=== PATIENT | male | born 1995 | race Caucasian/White ===

== ENCOUNTER 2022-09-14 21:17 | Emergency (ER) | payer SELFPAY ==
--- OUTSIDE RECORDS SUMMARY | 2022-09-14 21:21 | XMS REPORT | Continuity of Care Document ---
:1995 Author Organization [facility] t Address [address] [facility] [address] [place] [id number] Care Team Providers Name Role Phone Asked, No Pcp Primary Care Physician Unavailable Iris Schmitt Attending Clinician Denilson GUIDE DOG MOBILITY INSTRUCTOR, Bernice Cook Attending Clinician Payers Payer Name Policy Type Policy Number Effective Date Expiration Date S ource Problems Condition Condition Condition Status Onset Resolution Last Treating Co mments Source Name Details Category Date Date Treatment Clinician Date Patient Patient Problem Active 2022-02-19 Me moria encounter encounter 21:22:02 l status status [place] (finding) (finding) Active Problem 02/19/2022 [facility] Simple Simple Problem Active 2020-10-30 John laney obesity obesity 02:00:46 l (disorder) (disorder) Luis Miguel rmann Active Problem 10/30/2020 [facility] Bleeding Bleeding Problem Active 2022-02-19 Memoria from nose from nose 21:22:02 l (finding) (finding) Herm bre Active Problem 02/19/2022 [facility] Body mass Body Problem Active 2022-02-19 Me moria index 30+ mass index 21:22:02 l - obesity 30+ - [place] (finding) obesity (finding) Active Problem 02/19/2022 [facility] Group Krystina Krystina Problem Active 2022-02-19 Me moria intertrigo intertrigo 21:22:02 l (disorder) (disorder) Luis Miguel rmann Active Problem 02/19/2022 [facility] Obesity Obesity Problem Active 2022-02-19 Me moria (disorder) (disorder) 21:22:02 l Active [place] Problem 02/19/2022 [facility] History of Past Illness Condition Condition Condition Status Onset Resolution Last Treating Co mments Source Name Details Category Date Date Treatment Clinician Date Candidiasi Candidias Problem 2021-052022-02-14 2022-02-14 Memoria s of skin is of skin 0-07 03:26:57 03:26:57 l and nail and nail 16:22: Jh bolden 02/11/2022 00 02/14/2022 [facility] Epistaxis Problem 2021-052022-02-14 2022-02-14 Memoria Epistaxis 0-07 03:26:57 03:26:57 l 02/11/2022 16:21: Jh bolden 02/14/2022 00 [facility] Group Encounter Encounter Problem 2021-052022-02-14 2022-02-14 Memoria for for 0-07 03:26:57 03:26:57 l immunizati immunizati 16:09: Luis Miguel hatfield on on 02/11/2022 02/14/2022 [facility] Obesity, Obesity, Problem 2021-052022-02-14 2022-02-14 Memoria unspecifie unspecifie 0-07 03:26:57 03:26:57 l d d 16:06: [place] 02/11/2022 00 02/14/2022 [facility] Body mass Body mass Problem 2021-052022-02-14 2022-02-14 Memoria index index 0-07 03:26:57 03:26:57 l (BMI) (BMI) 16:06: [place] 34.0-34.9, 34.0-34.9, 00 adult adult 02/11/2022 02/14/2022 [facility] Encounter Problem 2021-052022-02-14 2022-02-14 Memoria for Encounter 0-07 03:26:57 03:26:57 l screening for 16:06: [place] for lipoid screening 00 disorders for lipoid disorders 02/11/2022 02/14/2022 [facility] Encounter Encounter Problem 2021-052022-02-14 2022-02-14 Memoria for for 0-07 03:26:57 03:26:57 l general general 16:06: [place] adult adult 00 medical medical examinatio examinatio n without n without abnormal abnormal findings findings 02/11/2022 02/14/2022 [facility] Encounter Encounter Problem 2021-052022-02-14 2022-02-14 Memoria for for 0-07 03:26:57 03:26:57 l screening screening 16:06: Herm bre for for 00 diabetes diabetes mellitus mellitus 02/11/2022 02/14/2022 [facility] Allergies, Adverse Reactions, Alerts Allergy Allergy Status Severity Reaction(s) Onset Inactive Treating Comm ents Source Name Type Date Date Clinician No Known No Known Active Memori a Medicati Medicati l on on [place] Allergie Allergie s s Social History Social Habit Start Date Stop Date Quantity Comments Source Gender identity [facility] Sexual orientation Method [facility] Sex Assigned At [address] [facility] 00:00:00 00:00:00 Smoking Status Start Date Stop Date Source Tobacco smoking consumption unknown [facility] Tobacco smoking status [facility] Medications Ordered Filled Start Stop Current Ordering Indication Dosage Frequency Signature Comments Components Source Medication Medication Date Date Medication? Clinician (SIG) Name Name nystatin-tr 2021-05 Yes 1 appl, Mem oria iamcinolone 0-07 TOP, BID, l topical 16:26: X 14 day, Cynthia nn cream 00 # 30 gm, 0 Refill(s), Pharmacy: [facility] [place], 172.72, cm, 02/11/22 10:31:00 CDT, Height, 102.528, kg, 02/11/22 10:31:00 CDT, Weight No known No No known Metho di medications 1-[address] 09:29: [facility] l Immunizations Ordered Immunization Filled Immunization Date Status Commen ts Source Name Name influenza virus 2022-02-11 Completed [facility], 19:15:00 [place] inactivated<sup>1</s up> influenza virus 2021-04-09 Completed [facility] vaccine, inactivated 00:00:00 Kamala díaz [id number] 2021-03-31 Completed John rial NA-[id number] 00:00:00 [place] diphtheria/pertussis 2020-10-27 Completed John rial , acel/tetanus 20:39:00 [place] adult<sup>1</sup> diphtheria/pertussis 2020-10-27 Completed John rial , acel/tetanus 20:39:00 [place] adult<sup>4</sup> [id number]-[id number] 2020-09-07 Completed John rial NA-[id number]<nichole 00:00:00 Herm bre p>2</sup> MRTT-JyQ-[id number]-19mR 2020-08-10 Completed John rial NA-1273vaxMODERNA<nichole 00:00:00 Herm bre p>3</sup> Vital Signs Vital Name Observation Time Observation Value Comments Source Temperature Oral (F) 2022-02-11 15:31:00 97.8 F [facility] [place] Heart Rate 2022-02-11 15:31:00 [facility] [place] Respitory Rate 2022-02-11 15:31:00 Mem[facility] al [place] Systolic (mm Hg) 2022-02-11 15:31:00 John rial [place] Diastolic (mm Hg) 2022-02-11 15:31:00 Mem orial [place] Height 2022-02-11 15:31:00 172.72 cm [facility] [place] Weight 2022-02-11 15:31:00 [facility] [place] BMI Calculated 2022-02-11 15:31:00 Memori al [place] BMI 2021-05-13 15:28:00 29.27 kg/m2 [facility] Body height 2021-05-13 15:28:00 177.8 cm [facility] Body weight 2021-05-13 15:28:00 92.534 kg [facility] Systolic (mm Hg) 2020-10-27 19:31:00 John rial [place] Diastolic (mm Hg) 2020-10-27 19:31:00 Mem orial [place] Heart Rate 2020-10-27 19:31:00 [facility] [place] Height 2020-10-27 19:31:00 172.72 [facility] 2020-10-27 19:31:00 [facility] BMI Calculated 2020-10-27 19:31:00 [facility] al [place] Procedures Procedure Date / Time Performed Performing Clinician Ernesto e Eye 2018-05-08 06:00:00 [facility] padilla examination<sup>1</sup> Plan of Care Planned Activity Planned Date Details Comments Source Future Scheduled 2022-08-09 COVID-19 VACCINE Methodi [facility] Test 02:47:54 (#1) [code = COVID-19 VACCINE (#1)] Future Scheduled 2022-08-09 INFLUENZA VACCINE Method [facility] Test 02:47:54 [code = INFLUENZA VACCINE] Future Scheduled 2021-05-30 COVID-19 VACCINE Methodi [facility] Test 21:11:42 (1) [code = COVID-19 VACCINE (1)] Future Scheduled 2021-05-30 [facility] 21:11:42 screening (procedure) [code = 286352569] Future Scheduled 2021-05-30 INFLUENZA VACCINE Method [facility] Test 21:11:42 [code = INFLUENZA VACCINE] Encounters Start End Encounter Admission Attending Care Care Encounter Source Date/Time Date/Time Type Type Clinicians Facility Department ID 2022-02-16 2022-02-17 Between nullFlavo MG [id number] Memoria 11:25:37 11:25:37 Visit r Primary 00 [facility] 2022-02-16 2022-02-[address] [id number] 06:25:37 06:25:37 00 2022-02-11 2022-02-12 Outpatient nullFlavo [facility] [id number] Memoria 15:40:00 04:59:59 r Primary 01 [facility] 2022-02-11 2022-02-11 Outpatient Schmitt [facility] [id number] 10:40:00 23:59:59 Iris Aliyah Les 2022-02-11 2022-02-11 Outpatient AMA LUIS [id number] Memoria 10:40:00 10:40:00 01 [facility] 2021-11-30 2021-11-30 Outpatient [facility] [id number] [place] 00:00:00 00:00:[address] 2021-05-13 2021-05-13 Ara [place] [id number] Methodi 08:47:52 09:43:28 Urgent Bernice Cook [id number] [facility] [id number] Hospit a .[id number] l .8 2020-10-27 2020-10-28 Outpatient nullFlavo [facility] [id number] Memoria 19:40:00 04:59:59 r Primary 00 l Zack Snider [facility] 2020-10-27 2020-10-27 Outpatient Oskar [facility] [id number] 14:40:00 23:59:59 Iris 00 Les 2020-10-27 2020-10-27 Outpatient [facility] [id number] Memoria 14:40:00 14:40:00 00 l [place] Results Test Description Test Time Test Comments Results Result Comments Source CHEM PANEL 2022-02-11 16:44:00 Test Item Value Reference Range Interpretation Comme nts Glucose Lvl (test code = Glucose Lvl) 82 65-99 [facility]2022-10-07 16:44:00 Test Item Value Reference Range Interpretation Comments BUN (test code = BUN) 14 7-25 [id number] 16:44:00 Test Item Value Reference Range Interpretation Comments Creatinine Lvl (test code = Creatinine 0.90 0.60-1.24 Lvl) [facility] [id number] 16:44:00 Test Item Value Reference Range Interpretation Comments eGFR (test code = eGFR) 122 [facility] [id number] 16:44:00 Test Item Value Reference Range Interpretation Comments B/C Ratio (test code = B/C NOT APPLICABLE 622 Ratio) [facility]putAT[id number] 16:44:00 Test Item Value Reference Range Interpretation Comments Sodium Lvl (test code = Sodium Lvl) 143 135-146 [facility]put[facility] [id number] 16:44:00 Test Item Value Reference Range Interpretation Comments Potassium Lvl (test code = Potassium 4.9 3.5-5.3 Lvl) [facility] [id number] 16:44:00 Test Item Value Reference Range Interpretation Comments Chloride Lvl (test code = Chloride Lvl) 106 98-110 [facility]2022-10-07 16:44:00 Test Item Value Reference Range Interpretation Comments CO2 (test code = CO2) 29 20-32 [facility] [id number] 16:44:00 Test Item Value Reference Range Interpretation Comments Calcium Lvl (test code = Calcium Lvl) 9.6 8.6-10.3 [place] [id number] 16:44:00 Test Item Value Reference Range Interpretation Comments Total Protein (test code = Total 6.6 6.1-8.1 Protein) [place] [id number] 16:44:00 Test Item Value Reference Range Interpretation Comments Albumin Lvl (test code = Albumin Lvl) 4.5 3.6-5.1 [place] [id number] 16:44:00 Test Item Value Reference Range Interpretation Comments Globulin (test code = Globulin) 2.1 1.9-3.7 [place] [id number] 16:44:00 Test Item Value Reference Range Interpretation Comments A/G Ratio (test code = A/G Ratio) 2.1 1.0-2.5 [place] [id number] 16:44:00 Test Item Value Reference Range Interpretation Comments Bili Total (test code = Bili Total) 0.6 0.2-1.2 [place] 282102-10-07 16:44:00 Test Item Value Reference Range Interpretation Comments Alk Phos (test code = Alk Phos) 87 36-130 [place] [id number] 16:44:00 Test Item Value Reference Range Interpretation Comments ASPARTATE TRANSAMINASE (test code = 23 10-40 ASPARTATE TRANSAMINASE) [place] 282102-10-07 16:44:00 Test Item Value Reference Range Interpretation Comments ALANINE AMINOTRANSFERASE (test code = 56 9-46 ALANINE AMINOTRANSFERASE) [place] [address]-10-07 16:44:00 Test Item Value Reference Range Interpretation Comments WBC X 10x3 (test code = WBC X 10x3) 6.4 3.8-10.8 [place] [address]-10-07 16:44:00 Test Item Value Reference Range Interpretation Comments RBC X 10x6 (test code = RBC X 10x6) 5.38 4.20-5.80 [place] 099532-10-07 16:44:00 Test Item Value Reference Range Interpretation Comments Hgb (test code = Hgb) 16.3 13.2-17.1 [place] [address]-10-07 16:44:00 Test Item Value Reference Range Interpretation Comments Hct (test code = Hct) 47.8 38.5-50.0 [id number] 16:44:00 Test Item Value Reference Range Interpretation Comments MCV (test code = MCV) 88.8 80.0-100.0 [facility] TaylorSluquvpBVMXMJXQIC0856-29-25 16:44:00 Test Item Value Reference Range Interpretation Comments MCH (test code = MCH) 30.3 pg 27.0-33.0 [facility] TaylorNmrzdhpMLVYGYYLBD2147-25-36 16:44:00 Test Item Value Reference Range Interpretation Comments MCHC (test code = MCHC) 34.1 32.0-36.0 [facility] TaylorPnoewffPHFUDDKSKH7367-82-69 16:44:00 Test Item Value Reference Range Interpretation Comments RDW (test code = RDW) 12.1 11.0-15.0 [facility] Tayl[id number] 16:44:00 Test Item Value Reference Range Interpretation Comments Platelet (test code = Platelet) 264 140-400 [facility] TaylorRcwbxkqTUGWVMGTEZ9466-98-43 16:44:00 Test Item Value Reference Range Interpretation Comments MPV (test code = MPV) 10.6 7.5-12.5 [place] 099532-10-07 16:44:00 Test Item Value Reference Range Interpretation Comments Neutrophils # (test code = Neutrophils 4301 4223-5398 #) [facility] TaylorXjanwloDGUJJXTNHV2935-27-04 16:44:00 Test Item Value Reference Range Interpretation Comments Lymphocytes # (test code = Lymphocytes 5582 621-0713 #) [facility] TaylorShsvqrfVCRKRWLVYE0967-32-84 16:44:00 Test Item Value Reference Range Interpretation Comments Monocytes # (test code = Monocytes #) 512 200-950 [facility] TaylorZgwunlyFOPLDFVMGV5822-07-88 16:44:00 Test Item Value Reference Range Interpretation Comments Eosinophils # (test code = Eosinophils 307 15-500 #) [facility] TaylorHtfopfhDZDKGUEOEU8397-83-93 16:44:00 Test Item Value Reference Range Interpretation Comments Basophils # (test code 51 See_Comment [Aut omated message] The = Basophils #) system which generated this result tra nsmitted reference range : <=200. The reference r josé luis was not used to int erpret this result as normal/abnormal . [facility] TaylorEytacyiVXRJIXCHQM0975-61-78 16:44:00 Test Item Value Reference Range Interpretation Comments Segs (test code = Segs) 67.2 [facility]migrkeMFYFEOOHVI2987-93-57 16:44:00 Test Item Value Reference Range Interpretation Comments Lymphocytes (test code = Lymphocytes) 19.2 [facility]ct[facility]tHFKZZKJMEZ1770-60-33 16:44:00 Test Item Value Reference Range Interpretation Comments Monocytes (test code = Monocytes) 8.0 [facility] HospitalInxyfmhMCBKMGLTIQ1432-55-88 16:44:00 Test Item Value Reference Range Interpretation Comments Eosinophils (test code = Eosinophils) 4.8 [facility] HospitalZquovbxMIOSAQHZQP3132-83-32 16:44:00 Test Item Value Reference Range Interpretation Comments Basophils (test code = Basophils) 0.8 [facility] HospitalNhpbypnGAVLTY6306-63-67 16:44:00 Test Item Value Reference Range Interpretation Comments Chol (test code = Chol) 159 [facility] HospitalKwracriFOFIMR4169-56-80 16:44:00 Test Item Value Reference Range Interpretation Comments HDL (test code = HDL) 61 [facility] HospitalNstlmpyAJCNWH1671-39-99 16:44:00 Test Item Value Reference Range Interpretation Comments Trig (test code = Trig) 117 [facility] HospitalZmgdrxcQLCVQJ3484-56-66 16:44:00 Test Item Value Reference Range Interpretation Comments LDL (Calculated) (test code = LDL 78 (Calculated)) [facility] HospitalJfzcozxGMKJUW3821-49-99 16:44:00 Test Item Value Reference Range Interpretation Comments CHD Risk (test code = CHD Risk) 2.6 [facility] HospitalWyslogySKRAKP1205-74-04 16:44:00 Test Item Value Reference Range Interpretation Comments Non HDL Chol (test code = Non HDL Chol) 98 [facility] FFTXVRYDB7211-14-07 16:44:00 Test Item Value Reference Range Interpretation Comments Hgb A1C (test code = Hgb A1C) 4.8 [facility]
[2022-09-14 21:56] LABS: Absolute Lymphocytes (CBC) 2.3 K/uL (0.7-4.9); Hematocrit 48.1 % (39.6-49.0); Lymphocytes % 26.3 % (15.3-44.8); MCV 86.3 fL (80-100); MPV 9.1 fL (7.6-11.3); RBC Red Blood Cell Count 5.57 M/uL (4.33-5.43)
[2022-09-14 22:03] LABS: Protime INR 1.02
[2022-09-14 22:17] LABS: ALT/SGPT 64 U/L (16-61); AST/SGOT 41 U/L (15-37); Albumin 4.2 g/dL (3.4-5.0); Alkaline Phosphatase 118 U/L (45-117); BUN Blood Urea Nitrogen 13 mg/dL (7-18); Bicarbonate 25 mEq/L (21-32); Bilirubin Total 0.5 mg/dL (0.2-1.0); Glomerular Filtration Rate 110 ml/min (=/>90); Glucose Level 102 mg/dL (74-106); Magnesium 2.1 mg/dL (1.6-2.4); NT PRO-BNP 15 pg/mL (<125); Potassium 3.5 mEq/L (3.5-5.1); Protein, Total 7.3 g/dL (6.4-8.2); Sodium Level 139 mEq/L (136-145); Troponin High Sensitivity 4.8 pg/mL (<58.9)
[2022-09-14] MEDS ORDERED: ASPIRIN 81 MG CHEWABLE TABLET ONE (22:17)
[2022-09-14] MEDS ORDERED: NA CHLORIDE 0.9% 1,000 ML ONE (22:17)
[2022-09-14 22:19] LABS: Bilirubin Direct < 0.1 mg/dL (0-0.2); Bilirubin Indirect, Calculated ND (0.2-0.8)
--- NOTE | 2022-09-14 22:31 | RAD REPORT ---
EXAM DESCRIPTION: RAD - Chest Pa And Lat (2 Views) - 09/14/2022 10:22 pm CLINICAL HISTORY: CHEST PAIN Chest pain. COMPARISON: <Comparisons> FINDINGS: The lungs are clear. The heart is normal in size. No displaced fractures. IMPRESSION: No acute or concerning finding suspected.
--- NOTE | 2022-09-15 00:39 | EDPHYS ---
Physician Documentation [facility] Name: Lucas Champion Age: 26 yrs Sex: Male : 1995 Arrival Date: 09/14/2022 Time: 21:17 Bed 8 Private MD: ED Physician Jean Orona HPI: 09/14 21:56 This 26 yrs old Male presents to ER via Ambulatory with complaints of Chest laurence Pain. 21:56 The patient or guardian reports chest pain that is located primarily in the substernal laurence area. Historical: - Allergies: 21:25 No Known Allergies; as6 - PMHx: 21:25 None; as6 - PSHx: 21:25 wisdom teeth; as6 - Immunization history:: Client reports receiving the 2nd dose of the Covid vaccine, moderna. - Social history:: Smoking status: Reported history of juuling and/or vaping. ROS: 09/15 00:35 Constitutional: Negative for fever, chills, and weight loss, Eyes: Negative for injury, laurence pain, redness, and discharge, ENT: Negative for injury, pain, and discharge, Neck: Negative for injury, pain, and swelling, Respiratory: Negative for shortness of breath, cough, wheezing, and pleuritic chest pain, Abdomen/GI: Negative for abdominal pain, nausea, vomiting, diarrhea, and constipation, Back: Negative for injury and pain, : Negative for injury, bleeding, discharge, and swelling, MS/Extremity: Negative for injury and deformity, Skin: Negative for injury, rash, and discoloration, Neuro: Negative for headache, weakness, numbness, tingling, and seizure. Cardiovascular: Positive for chest pain, of the chest. MS/extremity: Negative for acute changes, swelling, tenderness. Exam: 00:35 Constitutional: This is a well developed, well nourished patient who is awake, alert, laurence and in no acute distress. Head/Face: Normocephalic, atraumatic. Eyes: Pupils equal round and reactive to light, extra-ocular motions intact. Lids and lashes normal. Conjunctiva and sclera are non-icteric and not injected. Cornea within normal limits. Periorbital areas with no swelling, redness, or edema. ENT: Nares patent. No nasal discharge, no septal abnormalities noted. Tympanic membranes are normal and external auditory canals are clear. Oropharynx with no redness, swelling, or masses, exudates, or evidence of obstruction, uvula midline. Mucous membranes moist. Neck: Trachea midline, no thyromegaly or masses palpated, and no cervical lymphadenopathy. Supple, full range of motion without nuchal rigidity, or vertebral point tenderness. No Meningismus. Chest/axilla: Normal chest wall appearance and motion. Nontender with no deformity. No lesions are appreciated. Cardiovascular: Regular rate and rhythm with a normal S1 and S2. No gallops, murmurs, or rubs. Normal PMI, no JVD. No pulse deficits. Respiratory: Lungs have equal breath sounds bilaterally, clear to auscultation and percussion. No rales, rhonchi or wheezes noted. No increased work of breathing, no retractions or nasal flaring. Abdomen/GI: Soft, non-tender, with normal bowel sounds. No distension or tympany. No guarding or rebound. No evidence of tenderness throughout. Back: No spinal tenderness. No costovertebral tenderness. Full range of motion. Male : Normal genitalia with no discharge or lesions. Skin: Warm, dry with normal turgor. Normal color with no rashes, no lesions, and no evidence of cellulitis. MS/ Extremity: Pulses equal, no cyanosis. Neurovascular intact. Full, normal range of motion. Neuro: Awake and alert, GCS 15, oriented to person, place, time, and situation. Cranial nerves II-XII grossly intact. Motor strength 5/5 in all extremities. Sensory grossly intact. Cerebellar exam normal. Normal gait. Psych: Awake, alert, with orientation to person, place and time. Behavior, mood, and affect are within normal limits. 00:35 ECG was reviewed by the Attending Physician. Vital Signs: 09/14 21:21 BP 133 / 75; Pulse 78; Resp 18 S; Temp 98.6(O); Pulse Ox 99% on R/A; Weight 95.25 kg as6 (R); Height 5 ft. 10 in. (R); Pain 5/10; 22:30 BP 116 / 69; Pulse 59; Resp 20 S; Pulse Ox 98% on R/A; ha1 23:30 BP 116 / 55; Pulse 57; Resp 19 S; Pulse Ox 97% on R/A; ha1 05/11 00:29 BP 124 / 63; Pulse 69; Resp 18 S; Pulse Ox 99% on R/A; [facility] 09/14 21:21 Body Mass Index 30.13 (95.25 kg, 177.8 cm) [facility] 09/14 21:21 Pain Scale: Adult as6 MDM: 09/14 21:54 Patient medically screened. [facility] 09/15 00:36 Differential diagnosis: abnormal EKG, acute myocardial infarction, acute pericarditis, laurence anxiety, coronary artery disease chest wall pain, Cholelithiasis esophagitis, gastritis, hiatal hernia, pancreatitis, pericarditis, pneumonia, pulmonary embolus, stable angina, thoracic aortic disection, unstable angina. HEART Score: History: Slightly Suspicious (0), ECG: Non specific repolarization disturbance / LBTB / PM (1), Age: < or = 45 years (0), Risk Factors: No Risk Factors Known (0), Troponin: < or = 1 x Normal Limit (0). CRISTELA Risk Score: TOTAL SCORE = 0. Data reviewed: vital signs, nurses notes, lab test result(s), EKG, radiologic studies, plain films. Consideration of Admission/Observation Escalation of care including admission/observation considered. I considered the following discharge prescriptions or medication management in the emergency department Medications were administered in the Emergency Department. See MAR. Test considered but Not performed: CT: no cy chest, no gb usg. Care significantly affected by the following chronic conditions: none. 09/14 21:28 Order name: Basic Metabolic Panel; Complete Time: 00:31 09/14 21:28 Order name: CBC with Diff; Complete Time: 00:09/14 21:28 Order name: LFT's; Complete Time: 00:31 09/14 21:28 Order name: Magnesium; Complete Time: 00:31 09/14 21:28 Order name: NT PRO-BNP; Complete Time: 00:09/14 21:28 Order name: PT-INR; Complete Time: 00:09/14 21:28 Order name: Troponin HS; Complete Time: 00:31 09/14 22:25 Order name: D-Dimer; Complete Time: 00:31 EDMS 09/14 21:55 Order name: Chest Pa And Lat (2 Views) XRAY; Complete Time: 00:31 laurence 09/14 21:28 Order name: EKG; Complete Time: 21:29 as09/14 21:28 Order name: Cardiac monitoring; Complete Time: 22:06 09/14 21:28 Order name: EKG - Nurse/Tech; Complete Time: 21:37 09/14 21:28 Order name: IV Saline Lock; Complete Time: 21:37 09/14 21:28 Order name: Labs collected and sent; Complete Time: 21:37 09/14 21:28 Order name: O2 Per Protocol; Complete Time: 22:06 09/14 21:28 Order name: O2 Sat Monitoring; Complete Time: : EC:35 Rate is 77 beats/min. Rhythm is regular. QRS [place] is Normal. NC interval is normal. QRS laurence interval is normal. QT interval is normal. No Q waves. T waves are Normal. No ST changes noted. Clinical impression: NSR w/ Non-specific ST/T Changes and No evidence of ischemia. Interpreted by me. Reviewed by me. Administered Medications: 09/14 22:20 Drug: NS 0.9% IV 1000 ml Route: IV; Rate: 1 bolus; Site: right antecubital; ha1 09/15 01:05 Follow up: Response: No adverse reaction; IV Status: Completed infusion; IV Intake: ha1 1000ml 09/14 22:20 Drug: Aspirin PO Chewable Tablet 162 mg Route: PO; ha1 23:10 Follow up: Response: No adverse reaction ha1 09/15 01:04 Not Given (Patient Refused): Metoprolol PO 25 mg PO once ha1 Disposition Summary: 09/15/22 00:38 Discharge Ordered Location: Home laurence Problem: new laurence Symptoms: have improved laurence Condition: Stable laurence Diagnosis - Chest pain, unspecified laurence - Palpitations laurence Followup: laurence - With: Private Physician - When: 2 - 3 days - Reason: Recheck today's complaints, Continuance of care, Re-evaluation by your physician Discharge Instructions: - Discharge Summary Sheet laurence - Nonspecific Chest Pain, Adult laurence - Palpitations laurence - Nonspecific Chest Pain, Adult, Aani-vx-[id number] laurence - Aspirin and Your Heart laurence - Palpitations, Gaur-ju-[id number] laurence Forms: - Medication Reconciliation Form laurence - Thank You Letter laurence - Antibiotic Education laurence - Prescription Opioid Use laurence Prescriptions: - Toprol XL 25 mg Oral Tablet - take 1 tablet by ORAL route once daily; 20 tablet; Refills: 0, Product laurence Selection Permitted Signatures: Dispatcher [employer] EDJean Boone MD MD cha Slawson, Ashby, RN RN as6 Mahsa Jaeger RN RN ha1 Corrections: (The following items were deleted from the chart) 09/14 22:23 21:29 Chest Single View+RAD.RAD.BRZ ordered. EDMS EDMS 22:25 21:56 D-DIMER+COAG.LAB.BRZ ordered. EDMS EDMS
--- NOTE | 2022-09-15 00:39 | ER ---
Nurse's Notes [facility] Name: Lucas Champion Age: 26 yrs Sex: Male : 1995 Arrival Date: 09/14/2022 Time: 21:17 Bed 8 Private MD: Diagnosis: Chest pain, unspecified;Palpitations Presentation: 09/14 21:21 Chief complaint: Patient states: "I am having chest pain and I'm feeling lightheaded". as6 Coronavirus screen: At this time, the client does not indicate any symptoms associated with coronavirus-19. Ebola Screen: No symptoms or risks identified at this time. Initial Sepsis Screen: Does the patient meet any 2 criteria? No. Patient's initial sepsis screen is negative. Does the patient have a suspected source of infection? No. Patient's initial sepsis screen is negative. Risk Assessment: Do you want to hurt yourself or someone else? Patient reports no desire to harm self or others. Onset of symptoms was September 14, 2022. 21:21 Method Of Arrival: Ambulatory as6 21:21 Acuity: SINDY 3 as6 Historical: - Allergies: 21:25 No Known Allergies; as6 - PMHx: 21:25 None; as6 - PSHx: 21:25 wisdom teeth; as6 - Immunization history:: Client reports receiving the 2nd dose of the Covid vaccine, moderna. - Social history:: Smoking status: Reported history of juuling and/or vaping. Screenin:35 [facility] ED Fall Risk Assessment (Adult) History of falling in the last 3 months, ha1 including since admission No falls in past 3 months (0 pts) Confusion or Disorientation No (0 pts) Intoxicated or Sedated No (0 pts) Impaired Gait No (0 pts) Mobility Assist Device Used No (0 pt) Altered Elimination No (0 pt) Score/Fall Risk Level 0 - 2 = Low Risk Oriented to surroundings, Maintained a safe environment, Educated pt \\T\\ family on fall prevention, incl call for assistance when getting out of bed. 23:00 Abuse screen: Denies threats or abuse. Denies injuries from another. Nutritional ha1 screening: No deficits noted. Tuberculosis screening: No symptoms or risk factors identified. Assessment: 21:35 General: Appears comfortable, Behavior is calm, cooperative. Pain: Complains of pain in ha1 chest Pain does not radiate. Pain currently is 3 out of 10 on a pain scale. Quality of pain is described as pressure, Pain began suddenly. Neuro: Level of Consciousness is awake, alert, obeys commands, Oriented to person, place, time, situation. Cardiovascular: Heart tones S1 S2 present Capillary refill < 3 seconds Patient's skin is warm and dry. Rhythm is sinus rhythm. Respiratory: Airway is patent Respiratory effort is even, unlabored, Respiratory pattern is regular, symmetrical. GI: No signs and/or symptoms were reported involving the gastrointestinal system. Abdomen is flat, non-distended. : No signs and/or symptoms were reported regarding the genitourinary system. Musculoskeletal: Circulation, motion, and sensation intact. Range of motion: intact in all extremities. 22:35 Reassessment: Patient and/or family updated on plan of care and expected duration. Pain ha1 level reassessed. Patient is alert, oriented x 3, equal unlabored respirations, skin warm/dry/pink. going to CT. 23:35 Reassessment: Patient and/or family updated on plan of care and expected duration. Pain ha1 level reassessed. Patient is alert, oriented x 3, equal unlabored respirations, skin warm/dry/pink. 09/15 00:29 Reassessment: Patient and/or family updated on plan of care and expected duration. Pain ha1 level reassessed. Patient is alert, oriented x 3, equal unlabored respirations, skin warm/dry/pink. Patient denies pain at this time. Vital Signs: 09/14 21:21 BP 133 / 75; Pulse 78; Resp 18 S; Temp 98.6(O); Pulse Ox 99% on R/A; Weight 95.25 kg as6 (R); Height 5 ft. 10 in. (R); Pain 09/14; 22:30 BP 116 / 69; Pulse 59; Resp 20 S; Pulse Ox 98% on R/A; ha1 23:30 BP 116 / 55; Pulse 57; Resp 19 S; Pulse Ox 97% on R/A; ha1 09/15 00:29 BP 124 / 63; Pulse 69; Resp 18 S; Pulse Ox 99% on R/A; ha1 09/14 21:21 Body Mass Index 30.13 (95.25 kg, 177.8 cm) as6 09/14 21:21 Pain Scale: Adult as6 ED Course: 09/14 21:19 Patient arrived in ED. mr 21:25 Triage completed. as6 21:25 Arm band placed on. as6 21:35 Patient has correct armband on for positive identification. Placed in gown. Bed in low ha1 position. Call light in reach. Side rails up X 1. 21:35 Client placed on continuous cardiac and pulse oximetry monitoring. NIBP monitoring ha1 applied. 21:37 Inserted saline lock: 20 gauge in right antecubital area, using aseptic technique. as6 Blood collected. 21:54 Jean Orona MD is Attending Physician. [facility] 22:05 Mahsa Jaeger, RN is Primary Nurse. ha1 22:06 Basic Metabolic Panel Sent. ha1 22:06 LFT's Sent. ha1 22:06 Magnesium Sent. ha1 22:24 Chest Pa And Lat (2 Views) XRAY In Process Unspecified. [facility] 09/15 01:06 No provider procedures requiring assistance completed. IV discontinued, intact, ha1 bleeding controlled, No redness/swelling at site. Pressure dressing applied. Patient maintains SpO2 saturation greater than 95% on room air. Administered Medications: 09/14 22:20 Drug: NS 0.9% IV 1000 ml Route: IV; Rate: 1 bolus; Site: right antecubital; 1 09/15 01:05 Follow up: Response: No adverse reaction; IV Status: Completed infusion; IV Intake: ha1 1000ml 09/14 22:20 Drug: Aspirin PO Chewable Tablet 162 mg Route: PO; ha1 23:10 Follow up: Response: No adverse reaction [facility] 09/15 01:04 Not Given (Patient Refused): Metoprolol PO 25 mg PO once ha1 Medication: 01:07 VIS not applicable for this client. ha1 Intake: 01:05 IV: 1000ml; Total: 1000ml. ha1 Outcome: 00:38 Discharge ordered by . [facility] 01:06 Discharged to home ambulatory. ha1 01:06 Condition: stable 01:06 Discharge instructions given to patient, Instructed on discharge instructions, follow up and referral plans. medication usage, Demonstrated understanding of instructions, follow-up care, medications, Prescriptions given X 1. 01:08 Patient left the ED. ha1 Signatures: Dispatcher [employer] EDMD Jean Orona MD MD laurence Ramesh, Jenn mr GueroantelmoChema howard, RN RN as6 Mahsa Jaeger, RN RN ha1 Corrections: (The following items were deleted from the chart) 09/14 22:25 22:20 D-DIMER+COAG.LAB.BRZ drawn and sent. ha1 ROSA
[2022-09-15] MEDS ORDERED: METOPROLOL TAR 25 MG TAB ONE (00:57)
[2022-09-15 01:33] VITALS: TEMP 98.6
[2022-09-15 01:37] VITALS: BP 124/63; O2SAT 99
--- NOTE | 2022-09-15 14:27 | EKG ---
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
== END 2022-09-15 01:08 | disposition home or self-care (01) ==
LOC: ER 21:17
DX: R07.9 Chest pain, unspecified (principal); R00.2 Palpitations
CPT/HCPCS: 36415; 71046; 80048; 80076; 83735; 83880; 84484; 85025; 85379; 85610; 93005; 96360; 96361; 99285; J7030